=== PATIENT | male | born 1975 | race Caucasian/White ===

== ENCOUNTER 2017-06-26 15:22 | Emergency (ER) | payer OTHER ==
[~2017-06-26] VITALS: Ht 175.3 cm; Wt 98.1 kg
[~2017-06-26 15:22] MED LIST: ASPIRIN81 M2 PO; BYETTA10 MCG/0.0 SC; FLEXERIL; FLEXERIL10 MG PO; GLIPIZIDE10 MG PO; GLYBURIDE5 MG PO; HYDROCODON-ACE1 EAC7 PO; METFORMIN HCL500 MG PO; MOBIC15 MG PO; OXYCODONE; PERCOCET 5/31 TABLET PO; RELAFE; XANAX; ZOFRAN ODT4 MG PO
[2017-06-26 16:46] VITALS: BP 122/83
== END 2017-06-26 17:24 | disposition home or self-care (01) ==
LOC: EME 15:22
DX: M54.5 Low back pain (principal); G89.29 Other chronic pain; E11.9 Type 2 diabetes mellitus without complications; F17.200 Nicotine dependence, unspecified, uncomplicated
CPT/HCPCS: 99281; 99284; J1100; J1885